=== PATIENT | female | born 1970 | race Caucasian/White ===

== ENCOUNTER → 2020-11-28 | Outpatient (CLI) | payer OTHER | LOC: CAT 12:48 | PROVIDERS: ATTEND Internal Medicine Cardiovascular Disease | DX: Z13.6 Encounter for screening for cardiovascular disorders (principal) ==

== ENCOUNTER → 2020-12-03 | Outpatient (CLI) | payer OTHER | LOC: SJCVCIMAG | PROVIDERS: ATTEND Internal Medicine Cardiovascular Disease | DX: Z13.6 Encounter for screening for cardiovascular disorders (principal); I07.1 Rheumatic tricuspid insufficiency ==

== ENCOUNTER → 2020-12-18 | Outpatient (CLI) | payer OTHER | LOC: RAD 08:33 | PROVIDERS: ATTEND Pediatrics | DX: R06.02 Shortness of breath (principal) ==

== ENCOUNTER → 2021-02-18 | Outpatient (CLI) | payer OTHER | LOC: CAT 02-11 11:06 | PROVIDERS: ATTEND Pediatrics | DX: R91.1 Solitary pulmonary nodule (principal); R06.02 Shortness of breath; R91.8 Other nonspecific abnormal finding of lung field ==

== ENCOUNTER → 2021-06-04 | Outpatient (CLI) | payer OTHER | LOC: SJCVCIMAG 09:22 | PROVIDERS: ATTEND Internal Medicine Cardiovascular Disease | DX: I10 Essential (primary) hypertension (principal) ==